=== PATIENT | female | born 1970 | race Caucasian/White ===

== ENCOUNTER 2019-03-25 09:11 | Outpatient (CLI) | payer BC ==
--- NOTE | 2019-03-25 09:23 | RAD ---
EXAM: Chest PA and lateral: HISTORY: Cough COMPARISON: 09/05/2012 FINDINGS: Heart size:Within normal limits. Lungs:Clear of acute process. No confluent pneumonia, overt edema, pleural effusion, or other acute process. Stable from prior study. IMPRESSION: No significant acute intrathoracic disease.
== END 2019-03-25 09:12 | disposition home or self-care (01) ==
LOC: BICRAD 09:11
PROVIDERS: ATTEND Specialist
DX: R05 Cough (principal)
CPT/HCPCS: 71046